=== PATIENT | female | born 1960 | race Caucasian/White ===

== ENCOUNTER → 2016-12-19 | Outpatient (CLI) | payer BC ==
--- NOTE | 2016-12-19 17:17 | XR ---
Left hand HISTORY: First digit pain 3 views of the left hand No comparisons Bone mineralization, joint spaces and alignment are maintained. There is no fracture or dislocation. No evident radiopaque foreign body. There is some marginal spurring at the interphalangeal joint of t he first digit, distal interphalangeal joints, first carpometacarpal joint. IMPRESSION: Osteoarthritis.
== END ==
LOC: RADXRMAIN 14:07
PROVIDERS: ATTEND Internal Medicine
DX: M19.042 Primary osteoarthritis, left hand (principal)

== ENCOUNTER → 2017-03-20 | Outpatient (CLI) | payer BC ==
--- NOTE | 2017-03-20 13:29 | BD ---
EXAMINATION TYPE: MG DEXA axial skeleton. DATE OF EXAM: 03/20/2017 COMPARISON: NONE CLINICAL HISTORY: Z78.0 POST MENOPAUSAL WITHOUT HRT Height: 61.2 IN Weight: 191 LBS FRAX RISK QUESTIONS: Alcohol (3 or more units per day): NO Family History (Parent hip fracture): NO Glucocorticoids (More than 3mos): NO (Ex: prednisone, prednisolone, methylprednisolone, dexamethasone, and hydrocortisone). History of Fracture in Adulthood: NO Secondary Osteoporosis: 1. Type 1 Diabetes: NO 2. Hyperthyroidism: NO 3. Menopause before 45: NO 4. Malnutrition: NO 5. Chronic liver disease: NO Rheumatoid Arthritis: NO Current Tobacco Use: NO RISK FACTORS HISTORY OF: Active: YES Postmenopausal woman: AGE 55 MEDICATIONS: Additional Medications: ALLERGY MEDS, EYE MEDS, COQ10, LISINOPRIL, ONE A DAY VIT, EXAM MEASUREMENTS: Bone mineral densitometry was performed using the [employer] System. Bone mineral density as measured about the Lumbar spine is: ----- L1-L4(G/cm2): 1.304 T Score Values are as follows: ----- L2: 0.7 ----- L3: 1.0 ----- L4: 0.4 ----- L1-L4: 1.0 Bone mineral density BASELINE Bone mineral density about the R hip (g/cm2): 0.999 Bone mineral density about the L hip (g/cm2): 0.961 T Score values are as follows: -----R Neck: -0.3 -----L Neck: -0.6 -----R Total: 0.8 -----L Total: 0.6 Bone mineral density BASELINE IMPRESSION: No evidence for osteoporosis or osteopenia. NOTE: T-SCORE=SD OF THE YOUNG ADULT MEAN.
--- NOTE | 2017-03-21 10:58 | WWHP ---
DATE OF SERVICE: 03/20/17 CHIEF COMPLAINT: The patient is here for her routine gynecological exam and mammogram. HISTORY OF PRESENT ILLNESS: This is a 56-year-old G6, P4, 0, 2, 4 with an LMP of 10/2015. The patient had a benign endometrial biopsy for postmenopausal bleeding in November 2015. She has had no post menopausal bleeding since then. She is without gynecological complaints. PAST MEDICAL HISTORY: Chronic hypertension, seasonal allergies, asthma, macular degeneration, early glaucoma, tendonitis of the left arm and arthritis. Medications: 1. Lisinopril one daily. 2. Multivitamin daily. 3. Co-Q10 daily. 4. AREDS-2 one daily. 5. Loratadine 10 mg daily. 6. She is also using a lotion for a skin condition prn. She does not know the name of the lotion. ALLERGIES: DARVON. PAST SURGICAL HISTORY: Colonoscopy in 2006 and 2015, appendectomy in 1973. Surgery for an ectopic in 1971, D&C in 1988. 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 She has no history of STDs. SOCIAL HISTORY: She denies tobacco and drug use. 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 FAMILY HISTORY: Father has coronary artery disease and colon cancer and recently had a stroke. Grandfather had CHF and a great grandfather had colon cancer. REVIEW OF SYSTEMS: She has gained about 3 pounds over the last year. She denies respiratory, cardiac or GI problems. PHYSICAL EXAM: Blood pressure 138/73. Height 5 feet 2 inches. Weight 192 pounds. Temperature 98.6. Pulse 82. This is a well developed, well nourished white female who is alert and oriented times three in no acute distress. HEENT: is within normal limits. Neck is supple without mass or thyromegaly. Chest and lungs clear to auscultation. Heart is regular rate and rhythm. Breasts: Without mass or discharge. Axillary exam is negative for adenopathy. Back negative for CVA tenderness. Abdomen is soft and nontender without palpable masses. Pelvic exam, external genitalia reveals mild atrophy without lesions. Cervix and vagina reveals mild atrophy without lesions. No endocervical polyp was seen today and the cervix appears normal. There is no evidence of prolapsed. Uterus is mid position, nongravid size and nontender. There are no palpable adnexal masses or tenderness. Rectovaginal exam reveals some external hemorrhoids which are not inflamed. Rectal exam negative for mass or tenderness. Negative for occult blood. Extremities nontender. IMPRESSION: 1. A 56 year old menopausal female with no further post menopausal bleeding after her benign endometrial biopsy in 11/2015. 2. Normal gynecological exam. 3. History of uterine fibroids. PLAN: 1. Pap smear was performed. 2. Self breast examination was discussed. 3. Mammogram will be done today. 4. Osteoporosis prevention was discussed. Bone density screening will be done today. 5. She will return in one year. KRISTY
--- NOTE | 2017-03-22 10:11 | MM ---
Reason for exam: screening (asymptomatic). Last mammogram was performed 1 year and 4 months ago. History: Patient is postmenopausal. Physical Findings: A clinical breast exam by your physician is recommended on an annual basis and results should be correlated with mammographic findings. MG Screening Mammo w CAD Bilateral CC and MLO view(s) were taken. Prior study comparison: November 16, 2015, bilateral MG screening mammo w CAD. October 27, 2014, bilateral MG screening mammo w CAD. May 02, 2011, bilateral digital screening mammo w/CAD. There are scattered fibroglandular densities. No significant changes when compared with prior studies. ASSESSMENT: Benign, BI-RAD 2 RECOMMENDATION: Routine screening mammogram of both breasts in 1 year.
== END | disposition home or self-care (01) ==
LOC: WWCWWP 07:56
PROVIDERS: ATTEND Obstetrics & Gynecology
DX: Z12.31 Encounter for screening mammogram for malignant neoplasm of breast (principal); Z78.0 Asymptomatic menopausal state
CPT/HCPCS: 77080; G0202

== ENCOUNTER → 2018-08-20 | Outpatient (CLI) | payer BC ==
[2018-08-20 15:54] VITALS: PULSE 97; RESP 16; TEMP 97.7; BMI 36.7
[2018-08-20 15:56] VITALS: BP 138/88
--- NOTE | 2018-08-20 17:23 | P.HPOB ---
History of Present Illness H&P Date: 08/20/18 Chief Complaint: The patient is here for her routine gynecologic exam and mammogram. This is a 58-year-old with an LMP of 2016. The patient is without gynecologic complaints and denies any postmenopausal bleeding. Review of Systems The patient is getting about 9 pounds over the last year and a half. She denies respiratory or cardiac problems. G.I.: occasional gallbladder pains when she eats greasy foods. Past Medical History Past Medical History: Asthma, Hypertension, Osteoarthritis (OA) Additional Past Medical History / Comment(s): Seasonal allergies, macular degeneration, early glaucoma, tendinitis of the left arm. 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 She does have a history of uterine fibroids. History of Any Multi-Drug Resistant Organisms: None Reported Past Surgical History: Appendectomy Additional Past Surgical History / Comment(s): Surgery for ectopic , D& C. Colonoscopy 2016(2nd-next 5yrs per pt). 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 - Past Family History Father Family Medical History: Cancer (Colon cancer), Coronary Artery Disease (CAD), CVA/TIA Additional Family Medical History / Comment(s): Grandfather had CHF and a great- grandfather had colon cancer. Medications and Allergies Home Medications Medication Instructions Recorded Confirmed Type Lisinopril [Prinivil] 10 mg PO DAILY 08/20/18 08/20/18 History Multivit with Calcium,Iron,Min 1 each PO DAILY 08/20/18 08/20/18 History [Women's Multivitamin] Ubidecarenone [Co Q-10] 100 mg PO DAILY 08/20/18 08/20/18 History Allergies Allergy/AdvReac Type Severity Reaction Status Date / Time propoxyphene [From Darvon] Allergy Unknown Verified 08/20/18 17:20 Exam Vital Signs Temp Pulse Resp BP Pulse Ox 08/20/18 15:51 97.7 F 97 16 138/88 98 Height 5'2", weight 201 pounds, BMI 36.7. This is a well-developed well-nourished heavyset white female who is alert and oriented times 3 in no acute distress. HEENT: Within normal limits. NECK: Supple without mass or thyromegaly. CHEST AND LUNGS: Clear to auscultation. HEART: Regular rate and rhythm. BREASTS: Are without mass or discharge. AXILLARY EXAM: Negative for adenopathy. BACK: Negative for CVA tenderness. ABDOMEN: Soft, nontender, without palpable masses. PELVIC EXAM: Normal external genitalia with mild atrophy. Cervix and vagina appear normal with mild atrophy. There is no unusual discharge. There is no evidence of prolapse. The uterus is midposition, nongravid size and nontender. There are no palpable adnexal masses or tenderness. RECTAL EXAM: rectovaginal exam is negative for mass or tenderness and is negative for occult blood. EXTREMITIES: Nontender. IMPRESSION: 1. 58-year-old menopausal female with normal gynecologic exam. 2. History of uterine fibroids. PLAN: 1. Pap smear was deferred since she had a normal one less than 2 years ago. 2. Self breast awareness was discussed with the patient. 3. Screening mammogram will be done today. 4. Osteoporosis prevention was discussed. I have stressed the importance of adequate calcium, vitamin D and regular exercise. Recommended amounts of calcium and vitamin D were also discussed. She had a normal bone density test done on 03/20/2017. We will plan on repeating this in approximately 2023. 5. She will return in one year.
--- NOTE | 2018-08-24 09:25 | MM ---
Reason for exam: screening (asymptomatic). Last mammogram was performed 1 year and 5 months ago. History: Patient is postmenopausal. MG Screening Mammo w CAD Bilateral CC and MLO view(s) were taken. Prior study comparison: March 20, 2017, bilateral MG screening mammo w CAD. November 16, 2015, bilateral MG screening mammo w CAD. The breast tissue is heterogeneously dense. This may lower the sensitivity of mammography. There are stable benign calcifications. No discrete abnormality. No significant changes when compared with prior studies. ASSESSMENT: Benign, BI-RAD 2 RECOMMENDATION: Routine screening mammogram of both breasts in 1 year.
== END ==
LOC: WWCWWP 15:19
PROVIDERS: ATTEND Obstetrics & Gynecology
DX: Z12.31 Encounter for screening mammogram for malignant neoplasm of breast (principal)
CPT/HCPCS: 77067

== ENCOUNTER → 2020-07-21 | Outpatient (CLI) | payer BC ==
--- NOTE | 2020-07-21 12:18 | BD ---
EXAMINATION TYPE: Axial Bone Density DATE OF EXAM: 07/21/2020 COMPARISON: NONE CLINICAL HISTORY: Height: 5 FT 2 IN Weight: 202 FRAX RISK QUESTIONS: Alcohol (3 or more units per day): NO Family History (Parent hip fracture): NO Glucocorticoids (More than 3mos): NO (Ex: prednisone, prednisolone, methylprednisolone, dexamethasone, and hydrocortisone). History of Fracture in Adulthood: YES Secondary Osteoporosis: 1. Type 1 Diabetes: NO 2. Hyperthyroidism: NO 3. Menopause before 45: NO 4. Malnutrition: NO 5. Chronic liver disease: NO Rheumatoid Arthritis: NO Current Tobacco Use: NO RISK FACTORS HISTORY OF: Family History of Osteoporosis: UNSURE Active: YES Diet low in dairy products/other sources of calcium: NO Postmenopausal woman: AGE 55 Take estrogen and/or progesterone medications: NONE Lost more than 2 inches in height since high school: NO MEDICATIONS: Additional Medications: LISINOPRIL, EYE MEDS, ALLERGY MEDS Additional History: EXAM MEASUREMENTS: Bone mineral densitometry was performed using the [employer] System. Bone mineral density as measured about the Lumbar spine is: ----- L1-L4(G/cm2): 1.255 T Score Values are as follows: ----- L2: 0.9 ----- L3: 0.2 ----- L4: -0.7 ----- L1-L4: 0.6 Bone mineral density has: DECREASED -5.8 % since study of: 2016 Bone mineral density about the R hip (g/cm2): 0.957 Bone mineral density about the L hip (g/cm2): 0.931 T Score values are as follows: -----R Neck: -0.6 -----L Neck: -0.8 -----R Total: 0.3 -----L Total: 0.6 Bone mineral density has: DECREASED -2.9 % since study of: 2017 IMPRESSION: No evidence for osteoporosis or osteopenia. NOTE: T-SCORE=SD OF THE YOUNG ADULT MEAN.
== END | disposition home or self-care (01) ==
LOC: RADBDWWP 07:55
PROVIDERS: ATTEND Internal Medicine
DX: M81.0 Age-related osteoporosis without current pathological fracture (principal)
CPT/HCPCS: 77080

== ENCOUNTER → 2020-08-31 | Outpatient (CLI) | payer OTHER ==
[2020-08-31 14:24] VITALS: BP 179/81; PULSE 85; RESP 18; TEMP 98.2
--- NOTE | 2020-08-31 14:58 | P.HPOB ---
History of Present Illness H&P Date: 08/31/20 Chief Complaint: The patient is here for her routine gynecologic exam and ma mmogram. This is a 60-year-old with an LMP of 2016. The patient is without gynecologic complaints and denies any postmenopausal bleeding. Review of Systems The patient's weight has been stable over the last year. She denies respiratory, cardiac, or G.I. problems. Past Medical History Past Medical History: Asthma, Hypertension, Osteoarthritis (OA) Additional Past Medical History / Comment(s): Seasonal allergies, macular degeneration, early glaucoma, tendinitis of the left arm. 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 She does have a history of uterine fibroids. History of Any Multi-Drug Resistant Organisms: None Reported Past Surgical History: Appendectomy Additional Past Surgical History / Comment(s): Surgery for ectopic , D&C. Bilateral carpal tunnel surgery. Colonoscopy 2016(2nd-next 5yrs per pt). Past Psychological History: No Psychological Hx Reported Smoking Status: Never smoker, Second hand smoke exposure Past Alcohol Use History: Rare (1 per year) Past Drug Use History: None Reported Additional History: She has been since 1981 and is working in the [employer] at [employer] - Past Family History Father Family Medical History: Cancer, Coronary Artery Disease (CAD), CVA/TIA Additional Family Medical History / Comment(s): Colon cancer. Grandfather had CHF and a great-grandfather had colon cancer. Medications and Allergies Home Medications Medication Instructions Recorded Confirmed Type Lisinopril [Prinivil] 10 mg PO DAILY 08/20/18 08/31/20 History Multivit with Calcium,Iron,Min 1 each PO DAILY 08/20/18 08/31/20 History [Women's Multivitamin] Ubidecarenone [Co Q-10] 100 mg PO DAILY 08/20/18 08/31/20 History Acetaminophen [Tylenol Arthritis] 650 mg PO DAILY PRN 08/31/20 08/31/20 History Ibuprofen 200 mg PO Q6H PRN 08/31/20 08/31/20 History Vit C/E/Zn/Coppr/Lutein/Zeaxan 1 each PO DAILY 08/31/20 08/31/20 History [Preservision Areds 2 Softgel] Allergies Allergy/AdvReac Type Severity Reaction Status Date / Time propoxyphene [From Darvon] Allergy Unknown Verified 08/31/20 14:15 Exam Vital Signs Temp Pulse Resp BP Pulse Ox 08/31/20 14:17 98.2 F 85 18 179/81 95 Intake and Output 08/30/20 08/31/20 08/31/20 22:59 06:59 14:59 Other: Weight 90.718 kg Height 5 feet 1 inch, weight 200 pounds, BMI 37.8. This is a well-developed well-nourished white female who is alert and oriented times 3 in no acute distress. HEENT: Within normal limits. NECK: Supple without mass or thyromegaly. CHEST AND LUNGS: Clear to auscultation. HEART: Regular rate and rhythm. BREASTS: Are without mass or discharge. AXILLARY EXAM: Negative for adenopathy. BACK: Negative for CVA tenderness. ABDOMEN: Soft, nontender, without palpable masses. PELVIC EXAM: Normal external genitalia with mild atrophy. Cervix and vagina appear normal mild atrophy. There is no unusual discharge. There is no evidence of prolapse. The uterus is midposition, nongravid size and nontender. There are no palpable adnexal masses or tenderness. RECTAL EXAM: rectovaginal exam is negative for mass or tenderness and is negative for occult blood. EXTREMITIES: Nontender. IMPRESSION: 1. 60-year-old menopausal female with normal gynecologic exam. 2. History of uterine fibroids. 3. Elevated blood pressure with history of chronic hypertension. PLAN: 1. Pap smear cotest was performed. 2. Self breast awareness was discussed with the patient. 3. Screening mammogram will be done today. 4. Osteoporosis prevention was discussed. I have stressed the importance of adequate calcium, vitamin D and regular exercise. Recommended amounts of calcium and vitamin D were also discussed. 5. We have discussed her elevated blood pressure. I have recommended that she check her own blood pressure on a regular basis since she does have a blood pressure cuff. She will follow up with her PCP for that pressure elevations. 6. She does plan on getting a COVID vaccination when it becomes available to her. 7. She was advised to return in one year for her annual well woman exam.
--- NOTE | 2020-09-03 12:23 | MM ---
Reason for exam: screening (asymptomatic). Last mammogram was performed 2 years ago. History: Patient is postmenopausal. Physical Findings: A clinical breast exam by your physician is recommended on an annual basis and results should be correlated with mammographic findings. MG Screening Mammo w CAD Bilateral CC and MLO view(s) were taken. Prior study comparison: August 20, 2018, bilateral MG screening mammo w CAD. March 20, 2017, bilateral MG screening mammo w CAD. There are scattered fibroglandular densities. Focal asymmetry left upper outer quadrant. Developing nodularity left MLO view. This finding is changed when compared with previous exams. ASSESSMENT: Incomplete: need additional imaging evaluation, BI-RAD 0 RECOMMENDATION: Special view mammogram of the left breast. If lesion persists on supplemental views, image directed ultrasound is recommended. [facility] will attempt to contact patient to return for supplemental views and ultrasound if indicated.
== END | disposition home or self-care (01) ==
LOC: WWCWWP 13:55
PROVIDERS: ATTEND Obstetrics & Gynecology
DX: Z12.31 Encounter for screening mammogram for malignant neoplasm of breast (principal)
CPT/HCPCS: 77067

== ENCOUNTER → 2020-09-08 | Outpatient (CLI) | payer OTHER ==
--- NOTE | 2020-09-08 10:20 | MM ---
Reason for exam: additional evaluation requested from abnormal screening. Last mammogram was performed less than 1 month ago. History: Patient is postmenopausal. Family history of breast cancer in maternal cousin at age 59. Took hormonal contraceptives for 10 years beginning at age 18. Physical Findings: Nurse did not find any significant physical abnormalities on exam. MG Work Up Mamm w CAD LT Spot compression CC, spot compression LM, and LM view(s) were taken of the left breast. Prior study comparison: August 31, 2020, bilateral MG screening mammo w CAD. August 20, 2018, bilateral MG screening mammo w CAD. There are scattered fibroglandular densities. Subtle 7mm nodular asymmetry incompletely disperses on spot MLO though becomes less defined on LM view. No abnormality seen on spot CC. These results were verbally communicated with the patient and result sheet given to the patient on 09/08/20. ASSESSMENT: Incomplete: need additional imaging evaluation, BI-RAD 0 RECOMMENDATION: Ultrasound of the left breast. (2-3 o'clock)
--- NOTE | 2020-09-08 10:21 | USB ---
Reason for exam: additional evaluation requested from abnormal screening. History: Patient is postmenopausal. Family history of breast cancer in maternal cousin at age 59. Took hormonal contraceptives for 10 years beginning at age 18. US Breast Workup Limited LT Left limited breast ultrasound including focal area of concern, retroareolar and axilla demonstrates no cystic or solid lesion seen. Scanned 12-3 o'clock. These results were verbally communicated with the patient and result sheet given to the patient on 09/08/20. ASSESSMENT: Probably benign, BI-RAD 3 RECOMMENDATION: Follow-up diagnostic mammogram of the left breast in 6 months.
== END | disposition home or self-care (01) ==
LOC: RADMAMWWP 08:26
PROVIDERS: ATTEND Obstetrics & Gynecology
DX: R92.8 Other abnormal and inconclusive findings on diagnostic imaging of breast (principal)
CPT/HCPCS: 77065

== ENCOUNTER → 2021-02-15 | Outpatient (CLI) | payer MEDICAID ==
--- NOTE | 2021-02-15 12:57 | XR ---
EXAMINATION TYPE: XR knee complete RT DATE OF EXAM: 02/15/2021 CLINICAL HISTORY: Patellar tendinitis TECHNIQUE: Three views of the right knee are obtained. COMPARISON: None. FINDINGS: There is no acute fracture/dislocation evident in right knee. The tri-compartment joint s paces appear within normal limits. The overlying soft tissue appears unremarkable. IMPRESSION: There is no acute fracture or dislocation in the right knee.
== END | disposition home or self-care (01) ==
LOC: RADXRMAIN 10:52
PROVIDERS: ATTEND Internal Medicine
DX: M76.51 Patellar tendinitis, right knee (principal)

== ENCOUNTER → 2021-03-23 | Outpatient (CLI) | payer MEDICAID ==
--- NOTE | 2021-03-24 10:43 | MM ---
Reason for exam: follow-up at short interval from prior study. Last mammogram was performed 6 months ago. History: Patient is postmenopausal. Family history of breast cancer in maternal cousin at age 59. Took hormonal contraceptives for 10 years beginning at age 18. Physical Findings: Nurse did not find any significant physical abnormalities on exam. MG Diagnostic Mammo LT w CAD CC and MLO view(s) were taken of the left breast. Prior study comparison: September 08, 2020, left breast MG work up mamm w CAD LT. August 31, 2020, bilateral MG screening mammo w CAD. The breast tissue is heterogeneously dense. This may lower the sensitivity of mammography. Focal asymmetry left breast is improved. No significant new findings when compared with previous films. These results were verbally communicated with the patient and result sheet given to the patient on 03/23/21. ASSESSMENT: Negative, BI-RAD 1 RECOMMENDATION: Return to routine screening mammogram schedule for both breasts. Back on schedule.
== END | disposition home or self-care (01) ==
LOC: RADMAMWWP 13:38
PROVIDERS: ATTEND Obstetrics & Gynecology
DX: R92.2 Inconclusive mammogram (principal); Z78.0 Asymptomatic menopausal state; Z80.3 Family history of malignant neoplasm of breast
CPT/HCPCS: 77065

== ENCOUNTER → 2021-06-22 | Outpatient (CLI) | payer MEDICAID | END | disposition home or self-care (01) | LOC: RADNMMAIN 07:55 | PROVIDERS: ATTEND Internal Medicine | DX: Z53.9 Procedure and treatment not carried out, unspecified reason (principal) ==

== ENCOUNTER 2021-08-09 11:19 | Day surgery (SDC) | payer MEDICAID ==
[2021-08-02 16:13] VITALS: BMI 36.6
[~2021-08-09 11:19] MED LIST: LACTATED RINGERS 1,000 ML IV SCH; LIDOCAINE 1% (10MG/ML) FOR IV START INTRADERMA PRN
[2021-08-09 11:49] VITALS: TEMP 97.1
[2021-08-09] MEDS ORDERED: PROPOFOL 10 MG/ML 20 ML VIAL IV ONE (12:27)
--- NOTE | 2021-08-09 12:52 | P.OP ---
Date of Procedure: 08/09/21 Preoperative Diagnosis: Screening colonoscopy Postoperative Diagnosis: Polyp 4 Hemorrhoids external Procedure(s) Performed: Colonoscopy with polypectomy 4 Anesthesia: MAC Surgeon: Enoch Sanchez Estimated Blood Loss (ml): 2 Condition: stable Disposition: same day Description of Procedure: Patient is brought operative suite remained in the left lateral decubitus position with sedation per department of anesthesia timeout was performed correct patient correct procedure correct site was verified rectal exam was performed external hemorrhoids were noted no other abnormalities are noted scope was placed in the rectum to the cecum with ease and slowly withdrawn make sure to visualize all fine of the colon on the way out there were 4 polyps noted to in the hepatic flexure and in the transverse colon which removed via hot snare polypectomy there is one in the descending colon removed via snare polypectomy and there was one small one in the descending colon removed via hot forceps biopsy. There is no other gross abnormalities noted patient tied the procedure well no apparent complications she'll need repeat colonoscopy in 3-5 years pending path Plan - Discharge Summary Discharge Rx Participant: No New Discharge Prescriptions: No Action Ubidecarenone [Co Q-10] 100 mg PO DAILY Vit C/E/Zn/Coppr/Lutein/Zeaxan [Preservision Areds 2 Softgel] 1 each PO DAILY Acetaminophen [Tylenol Arthritis] 650 mg PO DAILY PRN PRN Reason: Pain lisinopriL 40 mg PO HS Multivit with Calcium,Iron,Min [Women's Multivitamin] 1 each PO DAILY Loratadine 10 mg PO DAILY Cider Vinegar [Apple Cider Vinegar] 300 mg PO BID Discharge Medication List Ubidecarenone [Co Q-10] 100 mg PO DAILY 08/20/18 [History] Acetaminophen [Tylenol Arthritis] 650 mg PO DAILY PRN 08/31/20 [History] Vit C/E/Zn/Coppr/Lutein/Zeaxan [Preservision Areds 2 Softgel] 1 each PO DAILY 08/31/20 [History] Cider Vinegar [Apple Cider Vinegar] 300 mg PO BID 08/02/21 [History] Loratadine 10 mg PO DAILY 08/02/21 [History] Multivit with Calcium,Iron,Min [Women's Multivitamin] 1 each PO DAILY 08/02/21 [History] lisinopriL 40 mg PO HS 08/02/21 [History]
[2021-08-09 13:46] VITALS: BP 157/79; PULSE 67; RESP 14
== END 2021-08-09 13:55 | disposition home or self-care (01) ==
LOC: ORWHC2ENDO 11:19
PROVIDERS: ATTEND Student in an Organized Health Care Education/Training Program
DX: Z12.11 Encounter for screening for malignant neoplasm of colon (principal); D12.4 Benign neoplasm of descending colon; D12.3 Benign neoplasm of transverse colon; K64.4 Residual hemorrhoidal skin tags; Z80.0 Family history of malignant neoplasm of digestive organs; I10 Essential (primary) hypertension; E11.9 Type 2 diabetes mellitus without complications; M19.90 Unspecified osteoarthritis, unspecified site; J45.909 Unspecified asthma, uncomplicated; H35.30 Unspecified macular degeneration; D25.9 Leiomyoma of uterus, unspecified; Z79.899 Other long term (current) drug therapy; Z88.5 Allergy status to narcotic agent; Z88.8 Allergy status to other drugs, medicaments and biological substances; Z90.49 Acquired absence of other specified parts of digestive tract; Z98.890 Other specified postprocedural states; Z82.49 Family history of ischemic heart disease and other diseases of the circulatory system
CPT/HCPCS: 88305; 45384; 45385; J2704

== ENCOUNTER → 2022-08-22 | Outpatient (CLI) | payer MEDICAID ==
[2022-08-22 10:46] VITALS: BP 133/82; PULSE 81; RESP 17; TEMP 98.5
--- NOTE | 2022-08-22 11:50 | P.HPOB ---
History of Present Illness H&P Date: 08/22/22 Chief Complaint: The patient is here for her routine gynecologic exam and ma mmogram. This is a 62-year-old 0-4 with an LMP of 2016. The patient is without gynecologic complaints and denies any postmenopausal bleeding. Review of Systems She has gained about 3 pounds over the past 2 years. Respiratory: Occasional ALLERGY symptoms. She denies cardiac or GI symptoms. Past Medical History Past Medical History: Asthma, Diabetes Mellitus, Eye Disorder, Hypertension, Osteoarthritis (OA) Additional Past Medical History / Comment(s): Hx Gestational Diabetes. Seasonal allergies, macular degeneration, early glaucoma, tendonitis of the left arm. Hx of uterine fibroids. Varicose vein. 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 History of uterine fibroids. History of Any Multi-Drug Resistant Organisms: None Reported Past Surgical History: Appendectomy Additional Past Surgical History / Comment(s): Surgery for ectopic , D&C, bilateral carpal tunnel surgery, Colonoscopy 2015. Past Anesthesia/Blood Transfusion Reactions: Previous Problems w/ Anesthesia Additional Past Anesthesia/Blood Transfusion Reaction / Comment(s): "Groggy for 1-2 days after, gets really agitated with mask on face, clausterphobic". 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 - Past Family History Father Family Medical History: Cancer, Coronary Artery Disease (CAD), CVA/TIA Additional Family Medical History / Comment(s): Colon cancer. Medications and Allergies Home Medications Medication Instructions Recorded Confirmed Type Ubidecarenone [Co Q-10] 200 mg PO DAILY 08/20/18 08/22/22 History Acetaminophen [Tylenol Arthritis] 650 mg PO DAILY PRN 08/31/20 08/22/22 History Vit C/E/Zn/Coppr/Lutein/Zeaxan 1 each PO DAILY 08/31/20 08/22/22 History [Preservision Areds 2 Softgel] Cider Vinegar [Apple Cider Vinegar] 300 mg PO BID 08/02/21 08/22/22 History Loratadine 10 mg PO DAILY 08/02/21 08/22/22 History Multivit with Calcium,Iron,Min 1 each PO DAILY 08/02/21 08/22/22 History [Women's Multivitamin] lisinopriL 40 mg PO HS 08/02/21 08/22/22 History Atorvastatin [Lipitor] 20 mg PO DAILY 08/22/22 08/22/22 History Allergies Allergy/AdvReac Type Severity Reaction Status Date / Time propoxyphene [From Darvon] Allergy Unknown Verified 08/22/22 10:41 Exam Vital Signs Temp Pulse Resp BP Pulse Ox 08/22/22 10:43 98.5 F 81 17 133/82 96 Intake and Output 08/21/22 08/22/22 08/22/22 22:59 06:59 14:59 Other: Weight 92.079 kg Height 5 feet 2 inches, weight 203 pounds, BMI 37.1. This is a well-developed well-nourished white female who is alert and oriented times 3 in no acute distress. HEENT: Within normal limits. NECK: Supple without mass or thyromegaly. CHEST AND LUNGS: Clear to auscultation. HEART: Regular rate and rhythm. BREASTS: Are without mass or discharge. AXILLARY EXAM: Negative for adenopathy. BACK: Negative for CVA tenderness. ABDOMEN: Soft, nontender, without palpable masses. PELVIC EXAM: Normal external genitalia with mild to moderate atrophy.. Cervix and vagina appear normal with mild atrophy. There is no unusual discharge. There is no evidence of prolapse. The uterus is midposition, firm and irregular, 8-10 weeks size and nontender. There are no palpable adnexal masses or tenderness. RECTAL EXAM: Vaginal exam is negative for mass or tenderness and is negative for occult blood. There are moderate benign-appearing external hemorrhoids. EXTREMITIES: Nontender. IMPRESSION: 1. 62-year-old menopausal female with uterine enlargement a partially 8-10 weeks size, firm and somewhat irregular, probable uterine fibroids. This seems larger than her previous examination. 2. History of uterine fibroids. PLAN: 1. Pap smear was deferred since she had a negative Pap smear cotest on 08/31/2020. 2. Self breast awareness was discussed with the patient. We have also discussed symptoms associated with inflammatory breast cancer. 3. Screening mammogram was done today. 4. Osteoporosis prevention was discussed. I have stressed the importance of adequate calcium, vitamin D and regular exercise. Recommended amounts of calcium and vitamin D were also discussed. She had a normal bone density test on 03/20/2017. We will plan on repeating bone density testing in 1 year. 5. Pelvic ultrasound was recommended to further evaluate the uterine enlargement. The order slip was given to the patient for this. 6. She was advised to return in one year for her annual well woman exam.
--- NOTE | 2022-08-23 09:35 | MM ---
Reason for Exam: Screening (asymptomatic). Last mammogram was performed 1 year(s) and 11 month(s) ago. Patient History: Menarche at age 11. First Full-Term at age 23. Postmenopausal. Hormonal Contraceptives for 10 years from age 18 until age 28. Maternal cousin had breast cancer, age 59. Risk Values: Leyda 5 year model risk: 1.4%. NCI Lifetime model risk: 6.0%. Prior Study Comparison: 08/31/2020 Bilateral Screening Mammogram, [facility]. 09/08/2020 Left Diagnostic Mammogram, [facility]. 03/23/2021 Left Diagnostic Mammogram, [facility]. Tissue Density: The breast tissue is heterogeneously dense. This may lower the sensitivity of mammography. Findings: Analyzed By CAD. There is no suspicious group of microcalcifications or new suspicious mass in either breast. Stable benign calcifications. Overall Assessment: Benign, BI-RAD 2 Management: Screening Mammogram of both breasts in 1 year. A clinical breast exam by your physician is recommended on an annual basis and results should be correlated with mammographic findings. Electronically signed and approved by: Rob Catalan D.O.
== END | disposition home or self-care (01) ==
LOC: RADMAMWWP 10:14
PROVIDERS: ATTEND Obstetrics & Gynecology
DX: Z12.31 Encounter for screening mammogram for malignant neoplasm of breast (principal)
CPT/HCPCS: 77067

== ENCOUNTER → 2022-08-28 | Outpatient (CLI) | payer MEDICAID ==
--- NOTE | 2022-08-29 07:24 | US ---
EXAMINATION TYPE: US pelvis complete transvag DATE OF EXAM: 08/28/2022 COMPARISON: 05/03/2011 CLINICAL HISTORY: N85.2 HYPERTROPHY OF UTERUS. TECHNIQUE: Transvaginal (TV) and Transabdominal (TA) . Transabdominal sonographic images of the pel vis were acquired. Transvaginal sonographic images were medically necessary to better assess the fol lowing anatomy: Uterus EXAM MEASUREMENTS: Uterus: 10.6 x 4.8 x 7.4 cm Endometrial Stripe: 0.4 cm Right Ovary: 1.6 x 1.2 x 1.0 cm Left Ovary: not visualized 1. Uterus: heterogeneous fibroid uterus, largest calcified right measuring 5.4 x 4.8 x 4.3cm 2. Endometrium: difficult to visualize 3. Right Ovary: wnl 4. Left Ovary: not visualized 5. Bilateral Adnexa: wnl 6. Posterior cul-de-sac: wnl IMPRESSION: 1. Uterine fibroids. 2. Nonvisualization of the left ovary. 3. Endometrium within normal limits where visualized.
--- NOTE | 2022-08-29 09:12 | P.PN ---
Progress Note - Text Progress Note Date: 08/29/22 OUTPATIENT FOLLOW-UP NOTE TEST(S)/RESULTS: Test results from 08/22/2022 include benign mammogram. Also pelvic ultrasound done on 08/28/2022 shows a fibroid uterus with the largest fibroid measuring 5.4 cm. METHOD OF NOTIFICATION: A message with these results was left on the patient's voicemail. PATIENT COMMENTS: DIAGNOSIS: Benign mammogram and fibroid uterus. DISCUSSION: The patient has a history of uterine fibroids. We will plan on following this conservatively unless she is having problems. She was instructed to call if she has any questions or if she is having any problems related to the uterine fibroids. PLAN: As above. She was advised to return in one year for her annual well woman exam.
== END | disposition home or self-care (01) ==
LOC: RADUSWWP 15:05
PROVIDERS: ATTEND Obstetrics & Gynecology
DX: D25.9 Leiomyoma of uterus, unspecified (principal); N85.2 Hypertrophy of uterus
CPT/HCPCS: 76830; 76856

== ENCOUNTER → 2023-08-28 | Outpatient (CLI) | payer BC ==
[2023-08-28 09:48] VITALS: BP 123/78; PULSE 98; RESP 18; TEMP 97.9
--- NOTE | 2023-08-28 10:10 | P.HPOB ---
History of Present Illness H&P Date: 08/28/23 Chief Complaint: The patient is here for her routine gynecologic exam and ma mmogram. This is a 63-year-old -0-2-4 with an LMP of 2016. Patient has a known fibroid uterus and the largest fibroid measured 5.4 cm by ultrasound on 08/28/2022. Patient states she has noticed occasional slight pelvic pressure and she wonders if this is related to the fibroid. She is otherwise without gynecologic complaints and denies any postmenopausal bleeding. Review of Systems The patient has lost 6 pounds over the last year. D&C has been on a low carbohydrate diet as recommended by her PCP. She denies respiratory, cardiac, or G.I. problems. Past Medical History Past Medical History: Asthma, Diabetes Mellitus, Eye Disorder, Hypertension, Osteoarthritis (OA) Additional Past Medical History / Comment(s): Hx Gestational Diabetes. Seasonal allergies, macular degeneration, early glaucoma, tendonitis of the left arm. Hx of uterine fibroids. Varicose vein. 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 History of uterine fibroids. History of Any Multi-Drug Resistant Organisms: None Reported Past Surgical History: Appendectomy Additional Past Surgical History / Comment(s): Surgery for ectopic , D&C, bilateral carpal tunnel surgery, Colonoscopy 2016. Past Anesthesia/Blood Transfusion Reactions: Previous Problems w/ Anesthesia Additional Past Anesthesia/Blood Transfusion Reaction / Comment(s): "Groggy for 1-2 days after, gets really agitated with mask on face, clausterphobic". Past Psychological History: No Psychological Hx Reported Smoking Status: Never smoker, Second hand smoke exposure ( is a smoker.) Past Alcohol Use History: None Reported Past Drug Use History: None Reported Additional History: He has been since 1981 and is not sexually active. 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 - Past Family History Father Family Medical History: Cancer, Coronary Artery Disease (CAD), CVA/TIA Additional Family Medical History / Comment(s): Colon cancer. Medications and Allergies Home Medications Medication Instructions Recorded Confirmed Type Ubidecarenone [Co Q-10] 200 mg PO DAILY 08/20/18 08/28/23 History Vit C/E/Zn/Coppr/Lutein/Zeaxan 1 each PO DAILY 08/31/20 08/28/23 History [Preservision Areds 2 Softgel] Loratadine 10 mg PO DAILY 08/02/21 08/28/23 History Multivit with Calcium,Iron,Min 1 each PO DAILY 08/02/21 08/28/23 History [Women's Multivitamin] lisinopriL 40 mg PO HS 08/02/21 08/28/23 History Atorvastatin [Lipitor] 20 mg PO DAILY 08/22/22 08/28/23 History Albuterol Inhaler [Ventolin Hfa 1 puff INHALATION DAILY 08/28/23 08/28/23 History Inhaler] Cholecalciferol [Vitamin D3 (25 25 mcg PO DAILY 08/28/23 08/28/23 History Mcg = 1000 Iu)] Allergies Allergy/AdvReac Type Severity Reaction Status Date / Time propoxyphene [From Darvon] Allergy Unknown Verified 08/28/23 09:30 Exam Vital Signs Temp Pulse Resp BP Pulse Ox 08/28/23 09:34 97.9 F 98 18 123/78 97 Intake and Output 08/27/23 08/28/23 08/28/23 22:59 06:59 14:59 Other: Weight 89.358 kg Height 5 feet 2 inches, weight 197 pounds, BMI 36.0. This is a well-developed well-nourished white female who is alert and oriented times 3 in no acute distress. HEENT: Within normal limits. NECK: Supple without mass or thyromegaly. CHEST AND LUNGS: Clear to auscultation. HEART: Regular rate and rhythm. BREASTS: Are without mass or discharge. AXILLARY EXAM: Negative for adenopathy. BACK: Negative for CVA tenderness. ABDOMEN: Soft, nontender, without palpable masses. PELVIC EXAM: Normal external genitalia with mild to moderate atrophy. Cervix and vagina appear normal with mild to moderate atrophy. There is no unusual discharge. There is no evidence of prolapse. The uterus is midposition, nongravid size and nontender. There are no palpable adnexal masses or te nderness. RECTAL EXAM: Rectovaginal exam is negative for mass or tenderness and is negative for occult blood. There is moderate stool in the rectum EXTREMITIES: Nontender. IMPRESSION: 1. 63-year-old menopausal female with normal gynecologic exam. 2. History of uterine fibroids with the largest measuring 5.4 cm by ultrasound 08/28/2022. 3. Occasional pelvic pressure which may or may not be related to the fibroid uterus. PLAN: 1. Pap smear was deferred since she had a negative Pap smear cotest on 08/31/2020. 2. Self breast awareness was discussed with the patient. We have also discussed symptoms associated with inflammatory breast cancer. 3. Screening mammogram will be done today. 4. Recommended to reevaluate the uterine fibroid and to evaluate the intermittent pelvic pressure. The order slip was given to the patient for this. 5. Osteoporosis prevention was discussed. I have stressed the importance of adequate calcium, vitamin D and regular exercise. Recommended amounts of calcium and vitamin D were also discussed. Will plan repeating the test in 1 year. 6. She was advised to return in one year for her annual well woman exam.
--- NOTE | 2023-08-29 08:07 | MM ---
Reason for Exam: Screening (asymptomatic). Last screening mammogram was performed 12 month(s) ago. Patient History: Menarche at age 11. First Full-Term at age 23. Postmenopausal. Patient has history of breast feeding. Hormonal Contraceptives for 10 years from age 18 until age 28. Maternal cousin had breast cancer, age 59. Risk Values: Leyda 5 year model risk: 1.4%. NCI Lifetime model risk: 5.8%. Prior Study Comparison: 03/20/2017 Bilateral Screening Mammogram, [facility]. 08/20/2018 Bilateral Screening Mammogram, [facility]. 08/31/2020 Bilateral Screening Mammogram, [facility]. 09/08/2020 Left Diagnostic Mammogram, [facility]. 03/23/2021 Left Diagnostic Mammogram, [facility]. 08/22/2022 Bilateral MG screening mammo w CAD, [facility]. Tissue Density: The breast tissue is heterogeneously dense. This may lower the sensitivity of mammography. Findings: Analyzed By CAD. There is no suspicious group of microcalcifications or new suspicious mass in either breast. Overall Assessment: Benign, BI-RAD 2 Management: Screening Mammogram of both breasts in 1 year. . Patient should continue monthly self-breast exams. A clinical breast exam by your physician is recommended on an annual basis. This exam should not preclude additional follow-up of suspicious palpable abnormalities. Note on Leyda scores and lifetime risk: 1. A Leyda score greater than 3% is considered moderate risk. If this is the case, consider specialist referral to assess eligibility for a risk reducing agent. 2. If overall lifetime risk for the development of breast cancer is 20% or higher, the patient may qualify for future screening with alternating mammogram and breast MRI. Electronically signed and approved by: Nito Hopper M.D. Radiologis
== END ==
LOC: WWCWWP 09:26
PROVIDERS: ATTEND Obstetrics & Gynecology
DX: Z12.31 Encounter for screening mammogram for malignant neoplasm of breast (principal); E11.9 Type 2 diabetes mellitus without complications; I10 Essential (primary) hypertension; J45.909 Unspecified asthma, uncomplicated; M19.90 Unspecified osteoarthritis, unspecified site; H42 Glaucoma in diseases classified elsewhere; H40.9 Unspecified glaucoma; R10.2 Pelvic and perineal pain; Z88.8 Allergy status to other drugs, medicaments and biological substances; Z86.018 Personal history of other benign neoplasm; Z87.59 Personal history of other complications of pregnancy, childbirth and the puerperium; Z90.49 Acquired absence of other specified parts of digestive tract; Z78.0 Asymptomatic menopausal state
CPT/HCPCS: 77063; 77067

== ENCOUNTER → 2023-09-06 | Outpatient (CLI) | payer BC ==
--- NOTE | 2023-09-06 13:39 | US ---
EXAMINATION TYPE: US pelvis complete transvag DATE OF EXAM: 09/06/2023 COMPARISON: NONE CLINICAL INDICATION: Female, 63 years old with history of R10.2 PELVIC AND PERINEAL PAIN D25.9 LEIOMY STARR OF; History of fibroids TECHNIQUE: Transvaginal (TV) and Transabdominal (TA) . Transabdominal sonographic images of the pel vis were acquired. Transvaginal sonographic images were medically necessary to better assess the fol lowing anatomy: uterus and left ovary Date of LMP: unknown EXAM MEASUREMENTS: Uterus: 11.2 x 5.0 x 6.6 cm Endometrial Stripe: 0.5 cm Right Ovary: 2.4 x 1.1 x 2.4 cm Left Ovary: unable to visualize 1. Uterus: Anteverted Heterogeneous fibroid uterus, largest is calcified = 4.0 x 3.6 x 3.9cm 2. Endometrium: appears wnl 3. Right Ovary: wnl 4. Left Ovary: Obscured by overlying bowel gas 5. Bilateral Adnexa: wnl 6. Posterior cul-de-sac: wnl IMPRESSION: Leiomyomatous change of the uterus.
== END | disposition home or self-care (01) ==
LOC: RADUSWWP 12:22
PROVIDERS: ATTEND Obstetrics & Gynecology
DX: D25.9 Leiomyoma of uterus, unspecified (principal)
CPT/HCPCS: 76830; 76856

== ENCOUNTER → 2024-07-18 | Outpatient (CLI) | payer MEDICARE ==
--- NOTE | 2024-07-18 16:15 | US ---
EXAMINATION TYPE: US carotid duplex BILAT DATE OF EXAM: 07/18/2024 COMPARISON: NONE CLINICAL INDICATION: Female, 64 years old with history of I34.0 MITRAL (VALVE) INSUFFICIENCY I65.23 S TENOSIS; hypotension Additional History: .... TECHNIQUE: Grayscale, color Doppler and spectral Doppler evaluation of the bilateral carotid systems and vertebral arteries. Indirect Doppler criteria was utilized. FINDINGS: EXAM MEASUREMENTS: RIGHT: Peak Systolic Velocity (PSV) cm/sec ----- Right CCA: 92.7 ----- Right ICA: 93.8 ----- Right ECA: 108 ICA/CCA ratio: 1.0 RIGHT: End Diastole cm/sec ----- Right CCA: 30.9 ----- Right ICA: 41.0 ----- Right ECA: 13.7 LEFT: Peak Systolic Velocity (PSV) cm/sec ----- Left CCA: 89.7 ----- Left ICA: 73.0 ----- Left ECA: 102 ICA/CCA ratio: 0.98 LEFT: End Diastole cm/sec ----- Left CCA: 24.1 ----- Left ICA: 35.5 ----- Left ECA: 19.4 VERTEBRALS (direction of flow): Right Vertebral: Antegrade Left Vertebral: Antegrade Rhythm: Normal EXTENSION EDGER NOTES: No significant stenosis seen Color Doppler imaging shows patency with blood flow throughout the carotid artery. Spectral waveforms are within normal limits. IMPRESSION: Right: No hemodynamically significant stenosis. Left: No hemodynamically significant stenosis. Criteria for Assigning % of Stenosis / Diameter reduction (Estimation based on the indirect measurements of the internal carotid artery velocities (ICA PSV). 1. Normal (no stenosis)=ICA PSV < 125 cm/s: ratio < 2.0: ICA EDV<40 cm/s. 2. Less than 50% stenosis=ICA PSV < 125 cm/s: ratio < 2.0: ICA EDV<40 cm/s. 3. 50 to 69% stenosis=ICA PSV of 125 to 230 cm/s: ration 2.0 ? 4.0: ICA EDV 40-100 cm/s. 4. Greater than 70% stenosis to near occlusion= ICA PSV > 230 cm/s: ratio > 4.0: ICA EDV > 100 cm/s. 5. Near occlusion= ICA PSV velocities may be low or undetectable: variable ratio and ICA EDV. 6. Total occlusion=unable to detect flow. [facility], , 07/18/2024 4:13 PM
--- NOTE | 2024-07-19 11:45 | CA ---
Transthoracic Echo Report Name: Xin Lozano Age: 64 Gender: F : 1960 Exam Date: 07/18/2024 15:48 Exam Location: [place] [facility] Ht (in): 62 Wt (lb): 195 Ordering Physician: Birgit Martin MD Attending/Referring Phys: Jason Holliday MD [employer] Lyubov Powell RDCS Procedure CPT: Indications: I34.0 MITRAL (VALVE) INSUFFICIENCY I65.23 STENOSIS Cardiac Hx: Technical Quality: Fair Contrast 1: Total Dose (mL): Contrast 2: Total Dose (mL): MEASUREMENTS (Male / Female) Normal Values 2D ECHO LV Diastolic Diameter PLAX 3.6 cm 4.2 - 5.9 / 3.9 - 5.3 cm IVS Diastolic Thickness 1.2 cm 0.6 - 1.0 / 0.6 - 0.9 cm LVPW Diastolic Thickness 1.1 cm 0.6 - 1.0 / 0.6 - 0.9 cm LV Relative Wall Thickness 0.6 RV Internal Dim ED PLAX 3.5 cm LVOT Diameter 2.4 cm LA Volume 54.8 cm??? 18 - 58 / 22 - 52 cm??? LA Volume Index 27.3 cm???/m??? 16 - 28 cm???/m??? M-MODE Aortic Root Diameter MM 3.3 cm LA Systolic Diameter MM 3.5 cm LA Ao Ratio MM 1.1 AV Cusp Separation MM 1.6 cm DOPPLER AV Peak Velocity 115.4 cm/s AV Peak Gradient 5.3 mmHg AV Mean Velocity 76.1 cm/s AV Mean Gradient 2.6 mmHg AV Velocity Time Integral 22.5 cm AI Peak Velocity 327.6 cm/s AI Peak Gradient 42.9 mmHg AI Pressure Half Time 697.1 ms LVOT Peak Velocity 86.1 cm/s LVOT Peak Gradient 3.0 mmHg LVOT Velocity Time Integral 15.8 cm LVOT Stroke Volume 70.2 cm??? LVOT Stroke Volume Index 37.1 ml/m??? LVOT Cardiac Index 2620.6 cm???/min???m??? AV Area Cont Eq vti 3.1 cm??? AV Area Cont Eq pk 3.3 cm??? MV Area PHT 4.1 cm??? Mitral E Point Velocity 56.2 cm/s Mitral A Point Velocity 89.0 cm/s Mitral E to A Ratio 0.6 MV Deceleration Time 185.9 ms MV E' Velocity 5.1 cm/s Mitral E to MV E' Ratio 11.0 TR Peak Velocity 217.5 cm/s TR Peak Gradient 18.9 mmHg FINDINGS Left Ventricle Mildly increased left ventricular wall thickness. Left ventricular cavity size normal. Normal left ventricular systolic function with no obvious regional wall motion abnormalities. Left ventricular ejection fraction is estimated at 55-60 %. Normal left ventricular diastolic filling pattern. Right Ventricle Normal right ventricular size and function. Right ventricular systolic pressure within normal limits. Right Atrium Normal right atrial size. Left Atrium Mildly increased left atrial volume. Mitral Valve Structurally normal mitral valve. No mitral stenosis. Mild mitral regurgitation. Mild mitral annular calcification. Aortic Valve Trileaflet aortic valve. Mild aortic regurgitation. Tricuspid Valve Structurally normal tricuspid valve. Mild tricuspid regurgitation. Pulmonic Valve Structurally normal pulmonic valve. Pericardium No pericardial effusion. Aorta Normal size aortic root and proximal ascending aorta. CONCLUSIONS Left ventricular ejection fraction is estimated at 55-60 %. Normal left ventricular systolic function with no obvious regional wall motion abnormalities. Normal right ventricular size and function. Mild mitral regurgitation. Mild aortic regurgitation. Mild tricuspid regurgitation. Previewed by: Dr Benoit Zheng (Electronically Signed) Final Date: 19 July 2024 11:44
== END | disposition home or self-care (01) ==
LOC: RADUSWWP 14:45
PROVIDERS: ATTEND Internal Medicine
DX: I34.0 Nonrheumatic mitral (valve) insufficiency (principal); I65.23 Occlusion and stenosis of bilateral carotid arteries; I10 Essential (primary) hypertension
CPT/HCPCS: 93306; 93880

== ENCOUNTER → 2025-02-10 | Outpatient (CLI) | payer MEDICARE ==
[2025-02-10 08:22] VITALS: BP 127/85; PULSE 77; RESP 16; TEMP 98
--- NOTE | 2025-02-10 08:41 | P.HPOB ---
History of Present Illness H&P Date: 02/10/25 Chief Complaint: The patient is here for her routine gynecologic exam and ma mmogram. This is a 64-year-old -0-2-4 with an LMP of 2016. The patient is without gynecologic complaints and denies any postmenopausal bleeding. Review of Systems The patient has lost 3 pounds over the last year. She states she has been under lots of stress. She denies respiratory, cardiac, or G.I. problems. Past Medical History Past Medical History: Asthma, Diabetes Mellitus, Eye Disorder, Hypertension, Osteoarthritis (OA) Additional Past Medical History / Comment(s): Hx Gestational Diabetes. Prediabetes. Seasonal allergies, macular degeneration, early glaucoma, tendonitis of the left arm. Varicose vein. 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 History of uterine fibroids. History of Any Multi-Drug Resistant Organisms: None Reported Past Surgical History: Appendectomy Additional Past Surgical History / Comment(s): Surgery for ectopic , D&C, bilateral carpal tunnel surgery, Colonoscopy 2015. Past Anesthesia/Blood Transfusion Reactions: Previous Problems w/ Anesthesia Additional Past Anesthesia/Blood Transfusion Reaction / Comment(s): "Groggy for 1-2 days after, gets really agitated with mask on face, clausterphobic". Past Psychological History: No Psychological Hx Reported Smoking Status: Never smoker, Second hand smoke exposure Past Alcohol Use History: None Reported Past Drug Use History: None Reported Additional History: She has been since 1981 and is not sexually active. 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 - Past Family History Father Family Medical History: Cancer, Coronary Artery Disease (CAD), CVA/TIA Additional Family Medical History / Comment(s): Colon cancer. Medications and Allergies Home Medications Medication Instructions Recorded Confirmed Type Ubidecarenone [Co Q-10] 200 mg PO DAILY 08/20/18 02/10/25 History Vit C/E/Zn/Coppr/Lutein/Zeaxan 1 each PO DAILY 08/31/20 02/10/25 History [Preservision Areds 2 Softgel] Loratadine 10 mg PO DAILY 08/02/21 02/10/25 History Multivit with Calcium,Iron,Min 1 each PO DAILY 08/02/21 02/10/25 History [Women's Multivitamin] lisinopriL 40 mg PO HS 08/02/21 02/10/25 History Atorvastatin [Lipitor] 20 mg PO DAILY 08/22/22 02/10/25 History Albuterol Inhaler [Ventolin Hfa 1 puff INHALATION DAILY 08/28/23 02/10/25 History Inhaler] Cholecalciferol [Vitamin D3 (25 25 mcg PO DAILY 08/28/23 02/10/25 History Mcg = 1000 Iu)] Allergies Allergy/AdvReac Type Severity Reaction Status Date / Time propoxyphene [From Darvon] Allergy Unknown Verified 02/10/25 08:14 Exam Vital Signs Temp Pulse Resp BP Pulse Ox 02/10/25 08:17 98.0 F 77 16 127/85 94 L Intake and Output 02/09/25 02/10/25 02/10/25 22:59 06:59 14:59 Other: Weight 87.997 kg Height 5 feet 2 inches, weight 194 pounds, BMI 35.5. This is a well-developed well-nourished white female who is alert and oriented times 3 in no acute distress. HEENT: Within normal limits. NECK: Supple without mass or thyromegaly. CHEST AND LUNGS: Clear to auscultation. HEART: Regular rate and rhythm. BREASTS: Are without mass or discharge. AXILLARY EXAM: Negative for adenopathy. BACK: Negative for CVA tenderness. ABDOMEN: Soft, nontender, without palpable masses. PELVIC EXAM: Normal external genitalia with mild atrophy. Cervix and vagina appear normal with mild atrophy. There is no unusual discharge. There is no evidence of prolapse. The uterus is midposition, approximately 8 weeks size, slightly irregular consistent with uterine fibroids, and nontender. There are no palpable adnexal masses or tenderness. RECTAL EXAM: Rectovaginal exam is negative for mass or tenderness and is negative for occult blood. EXTREMITIES: Nontender. IMPRESSION: 1. 64-year-old menopausal female with known uterine fibroids, with stable findings. PLAN: 1. Pap smear cotest was performed. If this is negative, we will plan on discontinuing Pap smears based on her age and no history of cervical problems. 2. Self breast awareness was discussed with the patient. We have also discussed symptoms associated with inflammatory breast cancer. 3. Screening mammogram will be done today. 4. Osteoporosis prevention was discussed. She had a normal bone density test in 2017. I recommended repeating the bone density test. The order slip was given to the patient for this. 5. She states she has had some issues with her blood sugars. She will follow- up with her hiv cts specialist for this. 6. The patient was advised to return in 1-2 years for her well woman examination.
--- NOTE | 2025-02-10 09:38 | MM ---
Reason for Exam: Screening (asymptomatic). Last mammogram was performed 1 year(s) and 6 month(s) ago. Patient History: Menarche at age 11. First Full-Term at age 23. Postmenopausal. Patient has history of breast feeding. Hormonal Contraceptives for 10 years from age 18 until age 28. Maternal cousin had breast cancer, age 59. Risk Values: Leyda 5 year model risk: 1.5%. NCI Lifetime model risk: 5.6%. Prior Study Comparison: 03/23/2021 Left Diagnostic Mammogram, [facility]. 08/22/2022 Bilateral MG screening mammo w CAD, [facility]. 08/28/2023 Bilateral MG 3D screening mammo w/cad, [facility]. Tissue Density: There are scattered areas of fibroglandular density. Findings: Analyzed By CAD. There is no suspicious group of microcalcifications or new suspicious mass in either breast. Overall Assessment: Benign, BI-RAD 2 Management: Screening Mammogram of both breasts in 1 year. . Patient should continue monthly self-breast exams. A clinical breast exam by your physician is recommended on an annual basis. This exam should not preclude additional follow-up of suspicious palpable abnormalities. Note on Leyda scores and lifetime risk: 1. A Leyda score greater than 3% is considered moderate risk. If this is the case, consider specialist referral to assess eligibility for a risk reducing agent. 2. If overall lifetime risk for the development of breast cancer is 20% or higher, the patient may qualify for future screening with alternating mammogram and breast MRI. [facility], , 02/10/2025 9:34 AM. Electronically signed and approved by: Nito Hopper M.D. Radiolog[facility]
== END ==
LOC: WWCWWP 07:54
PROVIDERS: ATTEND Obstetrics & Gynecology
DX: Z01.419 Encounter for gynecological examination (general) (routine) without abnormal findings (principal); Z12.31 Encounter for screening mammogram for malignant neoplasm of breast; D25.9 Leiomyoma of uterus, unspecified; Z78.0 Asymptomatic menopausal state; Z88.5 Allergy status to narcotic agent
CPT/HCPCS: 77063; 77067